=== PATIENT | male | born 1940 | race Caucasian/White ===

== ENCOUNTER 2024-01-30 08:59 | Emergency (ER) | payer OTHER, BC ==
[2024-01-30 09:34] VITALS: RESP 17; TEMP 98.9; BMI 27.2
[2024-01-30] MEDS ORDERED: ACETAMINOPHEN 325 MG TABLET (FP) ONE (10:26)
[2024-01-30] MEDS: ACETAMINOPHEN 500 MG TABLET (FP) PO ONE (10:29)
[2024-01-30 11:38] VITALS: BP 158/89; PULSE 88
== END 2024-01-30 11:38 | disposition home or self-care (01) ==
LOC: JER 08:59
DX: K40.90 Unilateral inguinal hernia, without obstruction or gangrene, not specified as recurrent (principal); M25.552 Pain in left hip; R10.32 Left lower quadrant pain; K59.00 Constipation, unspecified
CPT/HCPCS: 72170-TC-FY; 73502-TC-LT-FY; 99284-25